=== PATIENT | male | born 1990 | race Hispanic/Latino ===

== ENCOUNTER 2019-05-21 08:35 | Day surgery (SDC) | payer OTHER ==
--- NOTE | 2019-05-03 11:48 | HP ---
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 He experienced the acute onset of abdominal pain, right paraumbilical, when lifting a heavy object on the job. He presented to the [facility], where they noticed on exam, a 4 cm mass that was reduced. Imaging was not obtained. The patient continues to have pain in that area and was told to follow up with me regarding a hernia. ALLERGIES: NONE. TOBACCO: None. ALCOHOL: Rarely. MEDICATIONS: Sertraline. PAST SURGICAL HISTORY: Noncontributory. PAST MEDICAL HISTORY: Depression. REVIEW OF SYSTEMS: Ten-point noncontributory. FAMILY HISTORY: Noncontributory. PHYSICAL EXAMINATION: VITAL SIGNS: Weight 191 pounds, height 5 feet 7 inches, 29 BMI, blood pressure 148/80, heart rate 66, temperature 97.9 degrees. HEAD, EYES, EARS, NOSE AND THROAT: Unremarkable. LUNGS: Clear to auscultation. CARDIAC: Regular rate and rhythm. No murmur or gallop. ABDOMEN: Soft, nondistended. No umbilical hernias. No groin hernias. Right paraumbilical near the lateral rectus sheath edge. There is an area of tenderness. I do not appreciate a mass. He is difficult to examine due to his tenderness in this area. ASSESSMENT AND PLAN: Spigelian hernia. This is obtained from the ER record and his personal history. Imaging is not necessary. We would recommend robot laparoscopic-assisted repair of spigelian hernia, right paraumbilical with mesh. Risks of infection, bleeding, reoperation, recurrence of the hernia discussed, questions answered. He should after the surgery avoid lifting over 25 pounds for 4 weeks. He can do light duty after 1 to 2 weeks postoperatively avoiding heavy lifting until that 4-week date. Job ID: [id number]
[2019-05-21] MEDS ORDERED: Ketorolac Tromethamine 30 MG/ML VIAL ONE (09:57)
[2019-05-21] MEDS ORDERED: Fentanyl 100 MCG/2 ML VIAL ONE (10:38)
[2019-05-21] MEDS ORDERED: Bupivacaine/Epinephrine 0.25% 30 ML VIAL ONE (10:46)
[2019-05-21] MEDS ORDERED: Morphine 2 MG/ML SYRINGE ONE (16:41)
--- NOTE | 2019-05-21 17:02 | OP ---
DATE OF PROCEDURE: 05/21/2019 PREOPERATIVE DIAGNOSIS: Spigelian hernia. POSTOPERATIVE DIAGNOSES: No inguinal hernia. No spigelian hernia. Small umbilical hernia. PROCEDURE PERFORMED: Robot mesh repair of umbilical hernia with mesh reinforcement, 6 cm diameter Ventralight. ANESTHESIA: General, local 0.5% Marcaine with epinephrine. DESCRIPTION OF PROCEDURE: The patient was taken to the operating room, where under general anesthesia, Morales catheter was placed at the beginning and removed at the end. Abdomen was prepared with ChloraPrep, draped in routine fashion. Local anesthetic was infiltrated in the skin and subcutaneous tissue about the operative site. Left subxiphoid incision was made. Pneumoperitoneum to 15 mmHg was obtained with a Veress needle, replaced with an 11 port balloon port. Robot camera placed. Bilateral far lateral subcostal incision was made, 8 mm port was placed. Robot was docked and robot dissection carried out freeing the fatty tissue from the periumbilical area, and superiorly, there was abundant fatty tissue. Once this was performed, there was no evidence of a spigelian hernia. Groins without inguinal hernia. The patient had a 2.5 cm defect umbilical hernia. Fatty tissue was dissected free from this, reduced, and this defect closed with continuous suture and #0 V-Loc suture. Pneumoperitoneum had been reduced to 9 mmHg to facilitate this. A 6 cm Ventralight mesh placed intraabdominally and secured, centered about the defect with continuous suture 2-0 V-Loc suture. Once this was completed, all needles were removed. Good hemostasis noted. As all counts were correct, robot was removed, and pneumoperitoneum reduced. All instruments removed. All skin incisions were approximated with subdermal 4-0 Monocryl as the left subxiphoid fascia was approximated with 0 Vicryl on UR needle. Job ID: [id number]
[2019-05-21] MEDS ORDERED: HYDROcodone/Acetaminophen 5/325 mg Tablet ONE (17:06)
[2019-05-21] MEDS ORDERED: Promethazine HCl 25 MG/ML VIAL ONE (17:46)
[2019-05-21] MEDS ORDERED: Sodium Chloride 0.9% 10 ML ONE (17:46)
== END 2019-05-21 18:38 | disposition home or self-care (01) ==
LOC: SDC 08:35
PROVIDERS: ATTEND Specialist
PROC: 0WUF4JZ Supplement Abdominal Wall with Synthetic Substitute, Percutaneous Endoscopic Approach (ICD-10-PCS; principal; 2019-05-21)
DX: K42.9 Umbilical hernia without obstruction or gangrene (principal); F32.9 Major depressive disorder, single episode, unspecified; Z79.899 Other long term (current) drug therapy
CPT/HCPCS: J0131; J0690; J1885; J2270; J2550; J3010